=== PATIENT | male | born 1985 ===

== ENCOUNTER 2018-01-26 03:15 | Emergency (ER) | payer SELFPAY ==
[2018-01-26] MEDS ORDERED: Tdap Vaccine 0.5 ml Vial (10-64 yrs) IM ONE ×2 (03:41→07:19)
--- NOTE | 2018-01-26 03:55 | ED PDOC ---
HPI: Trauma/Fall - HPI Time Seen by Provider: 01/26/18 03:29 Chief Complaint (Nursing): Trauma Chief Complaint (Provider): Trauma History Per: Patient History/Exam Limitations: no limitations Past Medical History Vital Signs: Last Vital Signs Temp 97.3 F L 01/26/18 03:31 Pulse 108 H 01/26/18 03:31 Resp 16 01/26/18 03:31 BP 142/93 H 01/26/18 03:31 Pulse Ox 96 01/26/18 03:31 - Social History Current smoker - smoking cessation education provided: Yes (Light smoker <10 cigarettes daily) Alcohol: Social Drugs: Denies - Allergies Allergies/Adverse Reactions: Allergies Allergy/AdvReac Type Severity Reaction Status Date / Time No Known Allergies Allergy Verified 01/26/18 03:40 Physical Exam - Reviewed Nursing Documentation Reviewed: Yes - ECG O2 Sat by Pulse Oximetry: 96 Disposition - Disposition Forms: [employer] (Turkmen)
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
[2018-01-26 07:28] VITALS: PULSE 78; RESP 19
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
[2018-01-26 10:30] VITALS: BP 130/78; TEMP 97.7
[2018-01-28 13:00] VITALS: O2SAT 96
== END 2018-01-26 10:33 | disposition home or self-care (01) ==
LOC: H.ER 03:15
DX: S02.2XXA Fracture of nasal bones, initial encounter for closed fracture (principal); S00.03XA Contusion of scalp, initial encounter; T07.XXXA Unspecified multiple injuries, initial encounter; Y04.0XXA Assault by unarmed brawl or fight, initial encounter; Y92.89 Other specified places as the place of occurrence of the external cause; Y90.8 Blood alcohol level of 240 mg/100 ml or more
CPT/HCPCS: 70450; 70486; 82948; 90471; 90715; 99285; G0480